=== PATIENT | female | born 1980 | race Caucasian/White ===

== ENCOUNTER 2020-11-10 08:31 | Emergency (ER) | payer OTHER ==
[~2020-11-10 08:31] MED LIST: BROMFED DM COU473 ML PO; ZITHROMAX250 MG PO; ZOFRAN ODT 4 MG4 MG SL
[2020-11-10 08:58] LABS: HEMOGLOBIN 13.4 gm/dl (12.3-15.3); RED BLOOD COUNT 4.37 M/UL (4.00-5.10)
[2020-11-10 09:17] LABS: BUN/CREATININE RATIO 20 (0-10)
[2020-11-10] MEDS ORDERED: ONDANSETRON ODT4 MG SL (13:45)
[2020-11-10] MEDS ORDERED: NAPROSYN500 MG PO (13:45)
== END 2020-11-10 14:03 | disposition home or self-care (01) ==
LOC: ER1 08:31
PROVIDERS: Family Medicine
DX: N83.202 Unspecified ovarian cyst, left side (principal); N83.201 Unspecified ovarian cyst, right side; I10 Essential (primary) hypertension; K44.9 Diaphragmatic hernia without obstruction or gangrene; K76.0 Fatty (change of) liver, not elsewhere classified; K57.50 Diverticulosis of both small and large intestine without perforation or abscess without bleeding; N20.0 Calculus of kidney; Z90.710 Acquired absence of both cervix and uterus
CPT/HCPCS: 36415; 76830; 80053; 81001; 82150; 83690; 85025; 96374; 96375; 99284; J1885; J2270; J2405; J7030

== ENCOUNTER 2022-01-07 14:22 | Inpatient (IN) | payer OTHER ==
[~2022-01-07] VITALS: Ht 162.6 cm; Wt 102.2 kg
[~2022-01-07 14:22] MED LIST changes: +NAPROSYN500 MG PO; +ONDANSETRON ODT4 MG SL
[2022-01-07 15:46] LABS: HEMOGLOBIN 13.8 gm/dl (12.3-15.3); RED BLOOD COUNT 4.62 M/UL (4.00-5.10); WHITE BLOOD COUNT 13.2 K/UL (4.5-11.0)
[2022-01-07 16:11] LABS: BUN/CREATININE RATIO 20 (0-10)
[2022-01-07] MEDS ORDERED: LISINOPRIL-HCT1 EAC2 PO (20:17)
[2022-01-07] MEDS ORDERED: LANSOPRAZOLE30 MG PO (20:18)
[2022-01-07] MEDS ORDERED: SINGULAIR10 MG PO (20:18)
[2022-01-07] MEDS ORDERED: LINZESS72 MCG PO (20:20)
[2022-01-08] MEDS ORDERED: ZOFRAN ODT 4 MG4 MG PO (07:06)
[2022-01-08] MEDS ORDERED: CLARITIN10 MG PO (20:18)
[2022-01-09] MEDS ORDERED: COLACE100 MG PO (09:28)
[2022-01-09] MEDS ORDERED: HYDROCODON-ACE1 EAC2 PO (09:28)
[2022-01-09] MEDS ORDERED: ZOFRAN 4 MG TAB4 MG PO (13:06)
== END 2022-01-09 14:54 | disposition home or self-care (01) | DRG 419 ==
LOC: ER1 14:22 → CDU 17:30 → M/S 20:24
PROVIDERS: Emergency Medicine; Surgery; ADMIT Internal Medicine
PROC: 0FT44ZZ Resection of Gallbladder, Percutaneous Endoscopic Approach (ICD-10-PCS; principal; 2022-01-09 08:12)
DX: K81.0 Acute cholecystitis (principal); I10 Essential (primary) hypertension; K21.9 Gastro-esophageal reflux disease without esophagitis; J31.0 Chronic rhinitis; F17.200 Nicotine dependence, unspecified, uncomplicated; Z90.710 Acquired absence of both cervix and uterus; Z80.0 Family history of malignant neoplasm of digestive organs; Z80.8 Family history of malignant neoplasm of other organs or systems
CPT/HCPCS: 76830; 80053; 81001; 82550; 82553; 83605; 83690; 84484; 85025; 87040; 96374; 96375; 99285; J0360; J1100; J1170; J1885; J2001; J2250; J2270; J2405; J2543; J2704; J2710; J3010; J7030; J7120; Q9967; U0002